=== PATIENT | male | born 1950 | race Caucasian/White ===

== ENCOUNTER 2021-07-02 06:15 | Inpatient (IN) ==
[2021-07-02] MEDS ORDERED: CeFAZolin Syr 2,000MG/20 ML 2,000 MG/20 ML SYRINGE IVPB ONE (06:25)
[2021-07-02] MEDS ORDERED: Aspirin 81 MG TAB.CHEW PO ONE (06:26)
[2021-07-02] MEDS ORDERED: Ringers Solution, Lactated 1,000 ML IVC SCH (06:30)
[2021-07-02] MEDS ORDERED: Papaverine 60 MG/2 ML VIAL IVP ONE (06:42)
[2021-07-02] MEDS ORDERED: Vancomycin 1,000 MG VIAL ONE (06:42)
[2021-07-02] MEDS: Chlorhexidine Rinse 15 ML MOUTHWASH MM SCH ×3 (06:51→21:18)
[2021-07-02] MEDS ORDERED: NiCARdipine 2.5 MG/10 ML Syringe IVPB ONE (06:59)
[2021-07-02] MEDS ORDERED: *HR* DOBUTamine HCl 250 MG/20 ML VIAL ONE (06:59)
[2021-07-02] MEDS ORDERED: *HR* Midazolam HCl 5 MG/5 ML VIAL IVP ONE (07:01)
[2021-07-02] MEDS ORDERED: *HR* FentaNYL (PF) 1,000 MCG/20 ML VIAL ONE (07:01)
[2021-07-02] MEDS ORDERED: D5% in Water 250 ML ONE (07:02)
[2021-07-02] MEDS ORDERED: *HR* Vasopressin 20 UNIT/ML VIAL ONE (07:30)
[2021-07-02] MEDS ORDERED: Albumin Human 5% 12.5 GM/250 ML IV.SOLN ONE (07:31)
[2021-07-02] MEDS ORDERED: del Nido Cardioplegia Solution PF SCH (07:45)
[2021-07-02] MEDS ORDERED: Buckersberg's Blood Cardioplegia PF SCH (07:45)
[2021-07-02] MEDS ORDERED: Heparin 15,000 UNIT in 0.9 % Sodium Chloride 500 ML IV ONE (07:45)
[2021-07-02] MEDS ORDERED: Norepinephrine 4 MG in 0.9 % Sodium Chloride 250 ML IVC PRN (07:45)
[2021-07-02] MEDS ORDERED: del Nido Cardioplegia Solution PF ONE (08:00)
[2021-07-02 09:45] LABS: ABG Base Excess -3 mEq/L (-2 to 3); ABG Chloride 106 mEq/L (98-107); ABG Glucose 137 mg/dL (60-95); ABG HCO3 23 mEq/L (21-27); ABG Ionized Calcium 1.14 mmol/L (1.15-1.35); ABG Oxygen Saturation 97 % (95-98); ABG PCO2 45 mmHg (35-45); ABG PH 7.33 pH Units (7.32-7.45); ABG PO2 97 mmHg (85-104); ABG TCO2 25 mEq/L (20-26)
[2021-07-02 10:22] LABS: ABG Base Excess -3 mEq/L (-2 to 3); ABG Chloride 105 mEq/L (98-107); ABG Glucose 224 mg/dL (60-95); ABG HCO3 23 mEq/L (21-27); ABG Oxygen Saturation 97 % (95-98); ABG PCO2 42 mmHg (35-45); ABG PH 7.34 pH Units (7.32-7.45); ABG PO2 101 mmHg (85-104); ABG TCO2 24 mEq/L (20-26)
[2021-07-02 11:09] LABS: ABG Base Excess -5 mEq/L (-2 to 3); ABG Chloride 106 mEq/L (98-107); ABG Glucose 209 mg/dL (60-95); ABG HCO3 21 mEq/L (21-27); ABG Oxygen Saturation 99 % (95-98); ABG PCO2 41 mmHg (35-45); ABG PH 7.32 pH Units (7.32-7.45); ABG PO2 136 mmHg (85-104); ABG TCO2 23 mEq/L (20-26)
[2021-07-02] MEDS ORDERED: Albumin Human 5% 50.0 GM/1,000 ML IV.SOLN ONE (11:44)
[2021-07-02 11:57] LABS: ABG Base Excess -4 mEq/L (-2 to 3); ABG Chloride 105 mEq/L (98-107); ABG Glucose 213 mg/dL (60-95); ABG HCO3 22 mEq/L (21-27); ABG Ionized Calcium 1.18 mmol/L (1.15-1.35); ABG Oxygen Saturation 99 % (95-98); ABG PCO2 43 mmHg (35-45); ABG PH 7.32 pH Units (7.32-7.45); ABG PO2 142 mmHg (85-104); ABG TCO2 23 mEq/L (20-26)
[2021-07-02] MEDS ORDERED: Insulin Regular, Human 100 UNIT/ML IV PRN (13:10)
[2021-07-02] MEDS ORDERED: Ondansetron 4 MG/2 ML VIAL IVP PRN (13:10)
[2021-07-02] MEDS ORDERED: *HR* Dextrose 50 % in Water (Syg) 50 ML SYRINGE IVP PRN (13:10)
[2021-07-02] MEDS ORDERED: Calcium Gluconate 1gm/50mL 1 GM/50 ML BAG IVPB PRN (13:10)
[2021-07-02] MEDS ORDERED: Potassium Chloride 40 MEQ/200 ML BAG IVPB PRN (13:10)
[2021-07-02] MEDS ORDERED: Sennosides 8.6 MG TABLET PO PRN (13:10)
[2021-07-02 13:14] LABS: ABG Base Excess -5 mEq/L (-2 to 3); ABG HCO3 20 mEq/L (21-27); ABG Oxygen Saturation 96 % (95-98); ABG PCO2 37 mmHg (35-45); ABG PH 7.34 pH Units (7.32-7.45); ABG PO2 84 mmHg (85-104); ABG TCO2 21 mEq/L (20-26); Blood Gas Modality AF; Blood Gas VT 600 cc
[2021-07-02] MEDS ORDERED: *HR* Rocuronium Bromide 50 MG/5 ML VIAL ONE (13:15)
[2021-07-02] MEDS ORDERED: *HR* Etomidate 20 MG/10 ML AMPUL IVP ONE (13:16)
[2021-07-02] MEDS ORDERED: Tranexamic Acid 1,000 MG/10 ML VIAL ONE (13:16)
[2021-07-02] MEDS ORDERED: Protamine Sulfate 250 MG/25 ML VIAL IVP ONE (13:16)
[2021-07-02 13:22] LABS: Basophils # 0.1 K/mcL (0.0-0.2); Basophils % 0.3 %; Eosinophils # 0.2 K/mcL (0.0-0.6); Eosinophils % 0.8 %; Hematocrit 38.1 % (37.5-50.1); Immature Granulocytes % 0.9 % (0-4); Lymphocytes # 2.1 K/mcL (0.6-4.6); Lymphocytes % 10.3 %; Mean Corpuscular HGB Conc 32.8 g/dL (31.6-35.5); Mean Corpuscular Hemoglobin 29.6 pg (28.0-33.3); Mean Corpuscular Volume 90.3 fL (83.0-100.0); Mean Platelet Volume 10.1 fL (9.4-12.4); Monocytes # 1.8 K/mcL (0.0-1.3); Monocytes % 8.9 %; Neutrophils # 15.8 K/mcL (1.6-8.9); Platelet Count 203 K/mcL (140-400); Red Blood Count 4.22 M/mcL (4.19-5.50); Red Cell Distribution Width 12.8 % (11.5-14.5); Segmented Neutrophils % 78.8 %
[2021-07-02 13:31] LABS: INR 1.3
[2021-07-02 13:33] LABS: Activated Partial Thrombo Time 46.4 Seconds (26.0-36.0); Hemoglobin 12.5 g/dL (12.9-16.9)
[2021-07-02 13:52] LABS: BUN/Creatinine Ratio 17 (6-26); Blood Urea Nitrogen 19 mg/dL (8-23); Carbon Dioxide 22 mEq/L (23-29); Chloride 107 mEq/L (98-107); Glucose 201 mg/dL (70-105); Magnesium 1.6 mg/dL (1.6-2.6); Osmolality,Calculated 294 (280-300); Potassium 3.8 mEq/L (3.5-5.1); Sodium 138 mEq/L (136-145); eGFR For African Americans > 60 (> 60); eGFR For Non-African Americans > 60 (> 60)
[2021-07-02] MEDS: Albumin Human 5% 12.5 GM/250 ML IV.SOLN IVPB PRN ×2 (13:58→21:49)
[2021-07-02] MEDS: Norepinephrine 4 MG/254 ML IV.SOLN IVC SCH (14:05)
[2021-07-02] MEDS: niCARdipine 20 MG/200 ML MLS IVC SCH ×2 (14:05→15:43)
[2021-07-02 14:09] LABS: ABG Base Excess -5 mEq/L (-2 to 3); ABG Chloride 105 mEq/L (98-107); ABG Glucose 197 mg/dL (60-95); ABG HCO3 22 mEq/L (21-27); ABG Oxygen Saturation 98 % (95-98); ABG PCO2 48 mmHg (35-45); ABG PH 7.27 pH Units (7.32-7.45); ABG PO2 114 mmHg (85-104); ABG TCO2 24 mEq/L (20-26)
[2021-07-02] MEDS: *HR* OxyCODONE/APAP 5/325 TABLET PO PRN (14:49)
[2021-07-02] MEDS: CeFAZolin 2 GM/120 ML BAG IVPB SCH (15:02)
[2021-07-02] MEDS ORDERED: niCARdipine 40 MG/200 ML MLS IVC ONE (15:04)
[2021-07-02] MEDS ORDERED: Heparin 1,000 UNITS/500 mL IV.SOLN IR ONE (15:58)
[2021-07-02] MEDS ORDERED: *HR* Heparin 10,000 UNIT/10 ML VIAL IR ONE (15:58)
[2021-07-02 16:46] LABS: Magnesium 2.3 mg/dL (1.6-2.6); Potassium 3.4 mEq/L (3.5-5.1)
[2021-07-02 18:04] LABS: ABG Base Excess -6 mEq/L (-2 to 3); ABG HCO3 20 mEq/L (21-27); ABG Oxygen Saturation 95 % (95-98); ABG PCO2 40 mmHg (35-45); ABG PO2 81 mmHg (85-104); ABG TCO2 21 mEq/L (20-26); Blood Gas Modality CPAP/PS; Blood Gas Pressure Support 5 cm H2O
[2021-07-02] MEDS ORDERED: Amiodarone Premix 150 MG/100 ML BAG IVPB ONE (18:05)
[2021-07-02] MEDS ORDERED: Amiodarone Premix 360 MG/200 ML BAG IVC ONE (18:05)
[2021-07-02] MEDS: *HR* FentaNYL (PF) 100 MCG/2 ML VIAL IVP PRN (19:21)
[2021-07-02 20:34] LABS: ABG Base Excess -4 mEq/L (-2 to 3); ABG HCO3 21 mEq/L (21-27); ABG Oxygen Saturation 95 % (95-98); ABG PCO2 37 mmHg (35-45); ABG PH 7.36 pH Units (7.32-7.45); ABG PO2 80 mmHg (85-104); ABG TCO2 22 mEq/L (20-26); Blood Gas Modality 4LPM
[2021-07-02 21:10] LABS: ABG Ionized Calcium 1.22 mmol/L (1.15-1.35)
[2021-07-02 21:26] LABS: BUN/Creatinine Ratio 17 (6-26); Blood Urea Nitrogen 20 mg/dL (8-23); Calcium 8.5 mg/dL (8.6-10.3); Carbon Dioxide 21 mEq/L (23-29); Chloride 107 mEq/L (98-107); Glucose 144 mg/dL (70-105); Magnesium 2.4 mg/dL (1.6-2.6); Osmolality,Calculated 287 (280-300); Phosphorous 1.4 mg/dL (2.7-4.5); Potassium 4.1 mEq/L (3.5-5.1); Sodium 136 mEq/L (136-145); eGFR For African Americans > 60 (> 60); eGFR For Non-African Americans 60 (> 60)
[2021-07-03] MEDS: CeFAZolin 2 GM/120 ML BAG IVPB SCH (00:15)
[2021-07-03] MEDS: Amiodarone Premix 360 MG/200 ML BAG IVC SCH ×2 (00:24→12:13)
[2021-07-03] MEDS: niCARdipine 20 MG/200 ML MLS IVC SCH ×5 (01:55→17:05)
[2021-07-03 03:59] LABS: Basophils % 0.1 %; Hematocrit 36.6 % (37.5-50.1); Immature Granulocytes % 0.5 % (0-4); Lymphocytes # 0.7 K/mcL (0.6-4.6); Lymphocytes % 4.9 %; Mean Corpuscular HGB Conc 32.8 g/dL (31.6-35.5); Mean Corpuscular Hemoglobin 29.3 pg (28.0-33.3); Mean Corpuscular Volume 89.5 fL (83.0-100.0); Mean Platelet Volume 10.2 fL (9.4-12.4); Monocytes # 1.6 K/mcL (0.0-1.3); Monocytes % 10.6 %; Neutrophils # 12.3 K/mcL (1.6-8.9); Platelet Count 239 K/mcL (140-400); Red Blood Count 4.09 M/mcL (4.19-5.50); Segmented Neutrophils % 83.9 %; White Blood Count 14.7 K/mcL (4.3-11.1)
[2021-07-03 04:06] LABS: INR 1.3; Prothrombin Time 14.1 Seconds (9.4-12.1)
[2021-07-03 04:09] LABS: Activated Partial Thrombo Time 28.3 Seconds (26.0-36.0)
[2021-07-03] MEDS: *HR* OxyCODONE/APAP 5/325 TABLET PO PRN ×2 (04:17→08:17)
[2021-07-03 04:18] LABS: BUN/Creatinine Ratio 18 (6-26); Blood Urea Nitrogen 22 mg/dL (8-23); Calcium 8.2 mg/dL (8.6-10.3); Carbon Dioxide 21 mEq/L (23-29); Chloride 108 mEq/L (98-107); Glucose 152 mg/dL (70-105); Magnesium 2.1 mg/dL (1.6-2.6); Osmolality,Calculated 290 (280-300); Potassium 4.2 mEq/L (3.5-5.1); Sodium 137 mEq/L (136-145); eGFR For African Americans > 60 (> 60); eGFR For Non-African Americans > 60 (> 60)
[2021-07-03] MEDS: *HR* FentaNYL (PF) 100 MCG/2 ML VIAL IVP PRN (06:22)
[2021-07-03] MEDS ORDERED: Aspirin Enteric Coated 81 MG Tablet PO SCH (09:00)
[2021-07-03] MEDS ORDERED: Pantoprazole 40 MG VIAL IVP SCH (09:00)
[2021-07-03] MEDS: Chlorhexidine Rinse 15 ML MOUTHWASH MM SCH (10:21)
[2021-07-03] MEDS: Norepinephrine 4 MG/254 ML IV.SOLN IVC SCH (12:25)
[2021-07-03] MEDS ORDERED: Dextrose 4 GM Chewable Tablets PO PRN ×2 (13:20)
[2021-07-03] MEDS ORDERED: Sennosides 8.6 MG TABLET PO PRN (13:20)
[2021-07-03] MEDS ORDERED: *HR* OxyCODONE/APAP 5/325 TABLET PO PRN (13:20)
[2021-07-03] MEDS ORDERED: Albumin Human 5% 12.5 GM/250 ML IV.SOLN IVPB PRN (13:20)
[2021-07-03] MEDS ORDERED: *HR* Dextrose 50 % in Water (Syg) 50 ML SYRINGE IVP PRN (13:20)
[2021-07-03] MEDS ORDERED: Amiodarone Premix 360 MG/200 ML BAG IVC SCH (13:20)
[2021-07-03] MEDS ORDERED: D5% in Water 1,000 ML IVC PRN (13:20)
[2021-07-03] MEDS ORDERED: Ondansetron 4 MG/2 ML VIAL IVP PRN (13:20)
[2021-07-03] MEDS: Insulin LISPRO 300 UNITS/3 ML VIAL SUBQ SCH ×4 (13:36→23:09)
[2021-07-03] MEDS: lisinopriL 10 MG TABLET PO SCH (18:06)
[2021-07-03] MEDS: *HR* Heparin 5,000 UNIT/ML VIAL SQ SCH (18:06)
[2021-07-03] MEDS ORDERED: Furosemide 40 MG/4 ML VIAL IVP ONE (18:19)
[2021-07-03 18:49] LABS: ABG Base Excess -8 mEq/L (-2 to 3); ABG HCO3 15 mEq/L (21-27); ABG Oxygen Saturation 88 % (95-98); ABG PCO2 25 mmHg (35-45); ABG PO2 53 mmHg (85-104); ABG TCO2 16 mEq/L (20-26)
[2021-07-03] MEDS: niCARdipine 40 MG in 0.9 % Sodium Chloride 184 ML IVC SCH (18:55)
[2021-07-03 20:40] LABS: Potassium 3.8 mEq/L (3.5-5.1)
[2021-07-03 23:27] LABS: ABG Base Excess -3 mEq/L (-2 to 3); ABG HCO3 21 mEq/L (21-27); ABG Oxygen Saturation 97 % (95-98); ABG PCO2 32 mmHg (35-45); ABG PH 7.43 pH Units (7.32-7.45); ABG PO2 84 mmHg (85-104); ABG TCO2 22 mEq/L (20-26); Blood Gas Modality NIV
[2021-07-04] MEDS: niCARdipine 20 MG/200 ML MLS IVC SCH ×2 (01:11→01:12)
[2021-07-04 02:08] LABS: Basophils % 0.1 %; Hematocrit 33.4 % (37.5-50.1); Immature Granulocytes % 0.6 % (0-4); Lymphocytes # 0.8 K/mcL (0.6-4.6); Mean Corpuscular HGB Conc 32.9 g/dL (31.6-35.5); Mean Corpuscular Hemoglobin 29.7 pg (28.0-33.3); Mean Corpuscular Volume 90.3 fL (83.0-100.0); Mean Platelet Volume 10.7 fL (9.4-12.4); Monocytes # 1.3 K/mcL (0.0-1.3); Monocytes % 8.5 %; Neutrophils # 13.3 K/mcL (1.6-8.9); Platelet Count 193 K/mcL (140-400); Red Cell Distribution Width 13.3 % (11.5-14.5); Segmented Neutrophils % 85.8 %; White Blood Count 15.5 K/mcL (4.3-11.1)
[2021-07-04 02:09] LABS: VBG Ionized Calcium 1.14 mmol/L (1.15-1.35)
[2021-07-04 02:27] LABS: Albumin 3.2 g/dL (3.5-5.7); Albumin/Globulin Ratio 1.5 (1.1-2.2); Bilirubin,Total 0.4 mg/dL (0.3-1.0); Globulin 2.1 g/dL (2.4-3.5); Magnesium 2.3 mg/dL (1.6-2.6); Phosphorous 3.1 mg/dL (2.7-4.5); Potassium 4.2 mEq/L (3.5-5.1); Total Protein 5.3 g/dL (6.4-8.9)
[2021-07-04] MEDS: niCARdipine 40 MG in 0.9 % Sodium Chloride 184 ML IVC SCH ×2 (02:54→12:17)
[2021-07-04] MEDS ORDERED: 0.9 % Sodium Chloride 500 ML IVC ONE (03:54)
[2021-07-04] MEDS ORDERED: 0.9 % Sodium Chloride 500 ML ONE (04:18)
[2021-07-04] MEDS: *HR* Heparin 5,000 UNIT/ML VIAL SQ SCH ×2 (05:44→17:09)
[2021-07-04] MEDS: Insulin LISPRO 300 UNITS/3 ML VIAL SUBQ SCH ×4 (07:50→21:37)
[2021-07-04] MEDS: lisinopriL 10 MG TABLET PO SCH (07:51)
[2021-07-04] MEDS ORDERED: Aspirin Enteric Coated 81 MG Tablet PO SCH (09:00)
[2021-07-04] MEDS ORDERED: Pantoprazole 40 MG VIAL IVP SCH (09:00)
[2021-07-04 09:21] LABS: ABG Base Excess 0 mEq/L (-2 to 3); ABG HCO3 24 mEq/L (21-27); ABG Oxygen Saturation 95 % (95-98); ABG PCO2 35 mmHg (35-45); ABG PH 7.45 pH Units (7.32-7.45); ABG PO2 69 mmHg (85-104); ABG TCO2 25 mEq/L (20-26)
[2021-07-04] MEDS ORDERED: *HR* Amiodarone 200 MG TABLET PO SCH (10:30)
[2021-07-04] MEDS ORDERED: Perflutren Lipid Microsphere 1.3 ML in 0.9 % Sodium Chloride 8.7 ML IVP PRN ×2 (11:25→13:46)
[2021-07-04] MEDS ORDERED: Dextrose 4 GM Chewable Tablets PO PRN ×2 (13:46)
[2021-07-04] MEDS ORDERED: Ondansetron 4 MG/2 ML VIAL IVP PRN (13:46)
[2021-07-04] MEDS ORDERED: Sennosides 8.6 MG TABLET PO PRN (13:46)
[2021-07-04] MEDS ORDERED: *HR* Dextrose 50 % in Water (Syg) 50 ML SYRINGE IVP PRN (13:46)
[2021-07-04] MEDS ORDERED: D5% in Water 1,000 ML IVC PRN (13:46)
[2021-07-04] MEDS ORDERED: Albumin Human 5% 12.5 GM/250 ML IV.SOLN IVPB PRN (13:46)
[2021-07-04] MEDS: *HR* OxyCODONE/APAP 5/325 TABLET PO PRN (17:09)
[2021-07-05] MEDS: *HR* Heparin 5,000 UNIT/ML VIAL SQ SCH ×2 (06:17→17:15)
[2021-07-05 08:14] LABS: Basophils % 0.1 %; Eosinophils % 0.1 %; Hematocrit 33.3 % (37.5-50.1); Hemoglobin 11.2 g/dL (12.9-16.9); Immature Granulocytes % 1.2 % (0-4); Lymphocytes # 0.8 K/mcL (0.6-4.6); Lymphocytes % 4.8 %; Mean Corpuscular HGB Conc 33.6 g/dL (31.6-35.5); Mean Corpuscular Hemoglobin 30.4 pg (28.0-33.3); Mean Corpuscular Volume 90.2 fL (83.0-100.0); Mean Platelet Volume 10.9 fL (9.4-12.4); Monocytes # 1.2 K/mcL (0.0-1.3); Monocytes % 7.8 %; Neutrophils # 13.7 K/mcL (1.6-8.9); Platelet Count 229 K/mcL (140-400); Red Blood Count 3.69 M/mcL (4.19-5.50); Red Cell Distribution Width 13.5 % (11.5-14.5); White Blood Count 15.9 K/mcL (4.3-11.1)
[2021-07-05 08:34] LABS: Calcium 8.7 mg/dL (8.6-10.3); Magnesium 2.5 mg/dL (1.6-2.6); Potassium 3.9 mEq/L (3.5-5.1)
[2021-07-05] MEDS: Pantoprazole 40 MG VIAL IVP SCH (08:36)
[2021-07-05] MEDS: *HR* OxyCODONE/APAP 5/325 TABLET PO PRN (08:37)
[2021-07-05] MEDS: *HR* Amiodarone 200 MG TABLET PO SCH (08:37)
[2021-07-05] MEDS: Insulin LISPRO 300 UNITS/3 ML VIAL SUBQ SCH ×4 (08:38→20:29)
[2021-07-05] MEDS: Aspirin Enteric Coated 81 MG Tablet PO SCH (08:38)
[2021-07-05] MEDS ORDERED: lisinopriL 10 MG TABLET PO SCH (09:00)
[2021-07-05] MEDS ORDERED: Insulin DETEMIR 100 UNIT/ML X5UNITS SUBQ ONE (14:30)
[2021-07-06 05:18] LABS: Bacteria,Urine Moderate per hpf (None-Few); Bilirubin,Urine Negative (Negative); Blood,Urine Small (Negative); Budding Yeast,Urine Few per hpf (None Seen); Clarity,Urine Clear (Clear); Color,Urine Yellow (Yellow); Glucose,Urine (UA) Normal (Normal); Ketones,Urine Trace mg/dL (Negative); Leukocyte Esterase,Urine Negative (Negative); Mucus,Urine Few per lpf (None-Few); Nitrite,Urine Negative (Negative); PH,Urine 5.5 pH Units (5.0-8.0); Protein,Urine 50 mg/dL (Neg-Trace); Specific Gravity,Urine 1.025 (1.010-1.025); Squamous Epithelial Cell,Urine Few per hpf (None-Few); Urobilinogen,Urine Normal (Normal)
[2021-07-06 05:32] LABS: Basophils % 0.2 %; Eosinophils % 0.2 %; Hematocrit 34.9 % (37.5-50.1); Hemoglobin 11.5 g/dL (12.9-16.9); Immature Granulocytes % 1.1 % (0-4); Lymphocytes # 1.3 K/mcL (0.6-4.6); Lymphocytes % 10.3 %; Mean Corpuscular Hemoglobin 29.3 pg (28.0-33.3); Mean Corpuscular Volume 88.8 fL (83.0-100.0); Mean Platelet Volume 10.8 fL (9.4-12.4); Monocytes # 1.3 K/mcL (0.0-1.3); Monocytes % 10.3 %; Neutrophils # 9.6 K/mcL (1.6-8.9); Platelet Count 303 K/mcL (140-400); Red Blood Count 3.93 M/mcL (4.19-5.50); Red Cell Distribution Width 13.2 % (11.5-14.5); Segmented Neutrophils % 77.9 %; White Blood Count 12.3 K/mcL (4.3-11.1)
[2021-07-06 05:48] LABS: Calcium 8.7 mg/dL (8.6-10.3); Potassium 3.9 mEq/L (3.5-5.1)
[2021-07-06] MEDS: *HR* Heparin 5,000 UNIT/ML VIAL SQ SCH ×2 (05:49→16:59)
[2021-07-06 06:27] LABS: Thyroid Stimulating Hormone 3.07 mcIU/mL (0.340-5.600)
[2021-07-06] MEDS: Pantoprazole 40 MG VIAL IVP SCH (08:49)
[2021-07-06] MEDS: Aspirin Enteric Coated 81 MG Tablet PO SCH (08:50)
[2021-07-06] MEDS: Insulin LISPRO 300 UNITS/3 ML VIAL SUBQ SCH ×4 (08:50→21:22)
[2021-07-06] MEDS: *HR* Amiodarone 200 MG TABLET PO SCH (08:50)
[2021-07-06] MEDS ORDERED: Tolvaptan 15 MG TABLET PO ONE (11:26)
[2021-07-06] MEDS ORDERED: Amiodarone Premix 150 MG/100 ML BAG IVPB ONE (16:15)
[2021-07-06] MEDS ORDERED: Amiodarone Premix 360 MG/200 ML BAG IVC ONE (16:35)
[2021-07-06] MEDS ORDERED: *HR* Amiodarone 200 MG TABLET PO SCH (21:00)
[2021-07-06] MEDS: Amiodarone Premix 360 MG/200 ML BAG IVC SCH (23:19)
[2021-07-07] MEDS: *HR* Heparin 5,000 UNIT/ML VIAL SQ SCH (06:38)
[2021-07-07 07:07] LABS: Basophils % 0.3 %; Eosinophils # 0.1 K/mcL (0.0-0.6); Eosinophils % 1.2 %; Hematocrit 32.5 % (37.5-50.1); Hemoglobin 11.3 g/dL (12.9-16.9); Immature Granulocytes % 1.2 % (0-4); Lymphocytes % 12.8 %; Mean Corpuscular HGB Conc 34.8 g/dL (31.6-35.5); Mean Corpuscular Hemoglobin 30.4 pg (28.0-33.3); Mean Corpuscular Volume 87.4 fL (83.0-100.0); Mean Platelet Volume 10.3 fL (9.4-12.4); Monocytes # 1.2 K/mcL (0.0-1.3); Neutrophils # 5.4 K/mcL (1.6-8.9); Platelet Count 316 K/mcL (140-400); Red Blood Count 3.72 M/mcL (4.19-5.50); Red Cell Distribution Width 13.2 % (11.5-14.5); Segmented Neutrophils % 69.5 %; White Blood Count 7.8 K/mcL (4.3-11.1)
[2021-07-07] MEDS: Aspirin Enteric Coated 81 MG Tablet PO SCH (07:15)
[2021-07-07 07:27] LABS: Calcium 8.4 mg/dL (8.6-10.3); Potassium 4.1 mEq/L (3.5-5.1)
[2021-07-07 07:30] LABS: Albumin 3.1 g/dL (3.5-5.7); Albumin/Globulin Ratio 1.2 (1.1-2.2); Bilirubin,Direct 0.1 mg/dL (0.0-0.2); Bilirubin,Indirect 0.4 mg/dL (0.0-1.0); Bilirubin,Total 0.5 mg/dL (0.3-1.0); Globulin 2.6 g/dL (2.4-3.5); Total Protein 5.7 g/dL (6.4-8.9)
[2021-07-07] MEDS: Insulin LISPRO 300 UNITS/3 ML VIAL SUBQ SCH ×4 (08:46→20:46)
[2021-07-07] MEDS: Amiodarone Premix 360 MG/200 ML BAG IVC SCH ×2 (10:41→22:54)
[2021-07-07] MEDS ORDERED: *HR* Heparin 5,000 UNIT/ML VIAL IVP ONE (12:54)
[2021-07-07] MEDS ORDERED: *HR* Heparin 5,000 UNIT/ML VIAL IVP PRN ×2 (12:54)
[2021-07-07 14:13] LABS: Heparin anti-factor XA UFH < 0.04 IU/mL (0.30-0.70)
[2021-07-07 14:14] LABS: INR 1.1; Prothrombin Time 12.4 Seconds (9.4-12.1)
[2021-07-07] MEDS: Heparin 25,000UNIT/250ML 1/2NS 25,000 UNIT/250 ML IV.SOLN IVC SCH (14:33)
[2021-07-07] MEDS: carvediloL 6.25 MG TABLET PO SCH (17:26)
[2021-07-07] MEDS ORDERED: *HR* Warfarin 2.5 MG TABLET PO ONE (18:00)
[2021-07-07] MEDS ORDERED: Warfarin perPT PO PRN (18:00)
[2021-07-07] MEDS ORDERED: Insulin DETEMIR 100 UNIT/ML X5UNITS SUBQ SCH (21:00)
[2021-07-08 06:05] LABS: Basophils % 0.5 %; Eosinophils # 0.3 K/mcL (0.0-0.6); Eosinophils % 3.5 %; Hematocrit 31.2 % (37.5-50.1); Hemoglobin 10.6 g/dL (12.9-16.9); Immature Granulocytes % 1.6 % (0-4); Lymphocytes # 1.2 K/mcL (0.6-4.6); Lymphocytes % 15.8 %; Mean Corpuscular Volume 88.4 fL (83.0-100.0); Mean Platelet Volume 10.2 fL (9.4-12.4); Monocytes # 1.1 K/mcL (0.0-1.3); Monocytes % 14.7 %; Neutrophils # 4.8 K/mcL (1.6-8.9); Platelet Count 335 K/mcL (140-400); Red Blood Count 3.53 M/mcL (4.19-5.50); Red Cell Distribution Width 13.5 % (11.5-14.5); Segmented Neutrophils % 63.9 %; White Blood Count 7.5 K/mcL (4.3-11.1)
[2021-07-08 06:13] LABS: INR 1.3; Prothrombin Time 14.8 Seconds (9.4-12.1)
[2021-07-08 06:22] LABS: Calcium 8.1 mg/dL (8.6-10.3)
[2021-07-08] MEDS: carvediloL 6.25 MG TABLET PO SCH ×2 (08:25→17:51)
[2021-07-08] MEDS: Aspirin Enteric Coated 81 MG Tablet PO SCH (08:25)
[2021-07-08] MEDS: Insulin LISPRO 300 UNITS/3 ML VIAL SUBQ SCH ×4 (08:27→20:42)
[2021-07-08] MEDS: Heparin 25,000UNIT/250ML 1/2NS 25,000 UNIT/250 ML IV.SOLN IVC SCH (08:28)
[2021-07-08] MEDS: Amiodarone Premix 360 MG/200 ML BAG IVC SCH ×2 (11:19→21:09)
[2021-07-08] MEDS ORDERED: Lidocaine Viscous Oral Soln 15 ML SOLUTION MM PRN (12:43)
[2021-07-08] MEDS ORDERED: 0.9 % Sodium Chloride 500 ML IVC ONE (12:44)
[2021-07-08] MEDS: *HR* FentaNYL (PF) 100 MCG/2 ML VIAL IVP PRN ×4 (13:25→13:44)
[2021-07-08] MEDS: *HR* Midazolam HCl 5 MG/5 ML VIAL IVP PRN ×4 (13:25→13:44)
[2021-07-08] MEDS ORDERED: *HR* Warfarin 2.5 MG TABLET PO ONE (18:00)
[2021-07-08] MEDS ORDERED: Insulin DETEMIR 100 UNIT/ML X5UNITS SUBQ SCH (21:00)
[2021-07-09 04:43] LABS: Hematocrit 31.1 % (37.5-50.1); Hemoglobin 10.3 g/dL (12.9-16.9); Mean Corpuscular HGB Conc 33.1 g/dL (31.6-35.5); Mean Corpuscular Hemoglobin 29.3 pg (28.0-33.3); Mean Corpuscular Volume 88.6 fL (83.0-100.0); Mean Platelet Volume 9.7 fL (9.4-12.4); Platelet Count 332 K/mcL (140-400); Red Blood Count 3.51 M/mcL (4.19-5.50); Red Cell Distribution Width 13.5 % (11.5-14.5); White Blood Count 8.3 K/mcL (4.3-11.1)
[2021-07-09 04:53] LABS: INR 1.3; Prothrombin Time 14.7 Seconds (9.4-12.1)
[2021-07-09 05:01] LABS: BUN/Creatinine Ratio 21 (6-26); Blood Urea Nitrogen 27 mg/dL (8-23); Calcium 8.1 mg/dL (8.6-10.3); Carbon Dioxide 25 mEq/L (23-29); Chloride 105 mEq/L (98-107); Glucose 163 mg/dL (70-105); Osmolality,Calculated 291 (280-300); Sodium 136 mEq/L (136-145); eGFR For African Americans > 60 (> 60); eGFR For Non-African Americans 54 (> 60)
[2021-07-09 07:31] VITALS: TEMP 99.4
[2021-07-09 09:18] LABS: Creatine Kinase 192 Units/L (30-223)
[2021-07-09] MEDS: Insulin LISPRO 300 UNITS/3 ML VIAL SUBQ SCH (09:28)
[2021-07-09] MEDS: Aspirin Enteric Coated 81 MG Tablet PO SCH (09:58)
[2021-07-09] MEDS: carvediloL 6.25 MG TABLET PO SCH (10:09)
[2021-07-09 12:14] VITALS: PULSE 76; O2SAT 98
[2021-07-09 12:16] VITALS: BP 131/62
[2021-07-09] MEDS: Heparin 25,000UNIT/250ML 1/2NS 25,000 UNIT/250 ML IV.SOLN IVC SCH (14:13)
[2021-07-09] MEDS ORDERED: Furosemide 20 MG TABLET PO SCH (17:00)
[2021-07-09] MEDS ORDERED: *HR* Warfarin 5 MG TABLET PO ONE (18:00)
[2021-07-09] MEDS ORDERED: *HR* Amiodarone 200 MG TABLET PO SCH (21:00)
== END 2021-07-09 17:13 | disposition home health service (06) | DRG 235 ==
LOC: SAMDAY 06:15 → ICNU 11:37 → SUATTDRO 11:37 → 2NNU 07-04 16:45
PROVIDERS: ADMIT Thoracic Surgery (Cardiothoracic Vascular Surgery); ATTEND Internal Medicine

== ENCOUNTER 2021-12-17 17:17 | Inpatient (IN) ==
[2021-12-17 18:49] LABS: Immature Granulocytes % 0.6 % (0-4); Lymphocytes % 26.4 %
[2021-12-17 18:51] LABS: Basophils # 0.1 K/mcL (0.0-0.2); Basophils % 0.7 %; Eosinophils # 0.2 K/mcL (0.0-0.6); Eosinophils % 3.1 %; Hematocrit 19.7 % (37.5-50.1); Lymphocytes # 1.8 K/mcL (0.6-4.6); Mean Corpuscular HGB Conc 28.9 g/dL (31.6-35.5); Mean Corpuscular Hemoglobin 22.3 pg (28.0-33.3); Monocytes # 0.8 K/mcL (0.0-1.3); Monocytes % 12.2 %; Neutrophils # 3.8 K/mcL (1.6-8.9); Nucleated Red Blood Cells 0.3 /100 WBC (0); Platelet Count 383 K/mcL (140-400); Red Blood Count 2.56 M/mcL (4.19-5.50); White Blood Count 6.7 K/mcL (4.3-11.1)
[2021-12-17 19:14] LABS: Hemoglobin 5.7 g/dL (12.9-16.9)
[2021-12-17 19:36] LABS: Hypochromasia Present (Not Present); Microcytosis Present (Not Present); Polychromasia 1+ (Not Present)
[2021-12-17 20:34] LABS: Activated Partial Thrombo Time 41.1 Seconds (26.0-36.0)
[2021-12-17 20:39] LABS: Prothrombin Time 54.7 Seconds (9.4-12.1)
[2021-12-17] MEDS ORDERED: 0.9 % Sodium Chloride 500 ML ONE (21:09)
[2021-12-17] MEDS ORDERED: 0.9 % Sodium Chloride 500 ML IV ONE (21:15)
[2021-12-17 22:25] LABS: Calcium 8.5 mg/dL (8.6-10.3); Potassium 4.3 mEq/L (3.5-5.1); Troponin I 0.06 ng/mL (< 0.04)
[2021-12-17] MEDS ORDERED: Naloxone 0.4 MG/ML INJ IVP PRN (23:04)
[2021-12-17] MEDS ORDERED: Ondansetron 4 MG/2 ML VIAL IVP PRN (23:04)
[2021-12-17] MEDS ORDERED: Melatonin 3 MG TABLET PO PRN (23:04)
[2021-12-17] MEDS ORDERED: 0.9 % Sodium Chloride 1,000 ML IVC SCH (23:15)
[2021-12-18] MEDS: Pantoprazole 40 MG VIAL IVP SCH ×3 (00:11→17:02)
[2021-12-18] MEDS ORDERED: D5% in Water 1,000 ML IVC PRN (00:34)
[2021-12-18] MEDS ORDERED: *HR* Dextrose 50 % in Water (Syg) 50 ML SYRINGE IVP PRN (00:34)
[2021-12-18] MEDS ORDERED: Dextrose Gel 15 GM/37.5 ML TUBE PO PRN ×2 (00:34)
[2021-12-18] MEDS ORDERED: 0.9 % Sodium Chloride 250 ML ONE (02:12)
[2021-12-18 02:59] LABS: Hematocrit 20.7 % (37.5-50.1); Hemoglobin 6.2 g/dL (12.9-16.9); Mean Corpuscular Hemoglobin 23.6 pg (28.0-33.3); Mean Corpuscular Volume 78.7 fL (83.0-100.0); Mean Platelet Volume 10.1 fL (9.4-12.4); Platelet Count 336 K/mcL (140-400); Red Blood Count 2.63 M/mcL (4.19-5.50); Red Cell Distribution Width 15.9 % (11.5-14.5); White Blood Count 6.2 K/mcL (4.3-11.1)
[2021-12-18 03:17] LABS: Calcium 8.5 mg/dL (8.6-10.3); Potassium 4.3 mEq/L (3.5-5.1)
[2021-12-18 03:22] LABS: % Iron Saturation 5 % (20-55); Iron 24 mcg/dL (65-175); Transferrin 316 mg/dL (203-362)
[2021-12-18 03:27] LABS: INR 3.5; Prothrombin Time 38.7 Seconds (9.4-12.1)
[2021-12-18 03:30] LABS: Activated Partial Thrombo Time 37.4 Seconds (26.0-36.0); Thyroid Stimulating Hormone 2.603 mcIU/mL (0.340-5.600)
[2021-12-18 03:38] LABS: Folate 7.2 ng/mL (3.0-16.0)
[2021-12-18 03:49] LABS: Ferritin < 8 ng/mL (20-250)
[2021-12-18] MEDS: Insulin LISPRO 300 UNITS/3 ML VIAL SUBQ SCH ×4 (06:12→23:53)
[2021-12-18 06:43] LABS: Hematocrit 23.5 % (37.5-50.1); Hemoglobin 7.1 g/dL (12.9-16.9)
[2021-12-18] MEDS ORDERED: Iron Sucrose Complex 400 MG in 0.9 % Sodium Chloride 250 ML IVPB ONE (12:15)
[2021-12-18] MEDS: Cyanocobalamin (B-12) 1,000 MCG/ML VIAL SQ SCH (14:12)
[2021-12-18] MEDS: *HR* Amiodarone 200 MG TABLET PO SCH (14:12)
[2021-12-18 15:02] LABS: Bilirubin,Urine Negative (Negative); Blood,Urine Negative (Negative); Clarity,Urine Clear (Clear); Color,Urine Light-Yellow (Yellow); Glucose,Urine (UA) 300 mg/dL (Normal); Ketones,Urine Negative (Negative); Leukocyte Esterase,Urine Negative (Negative); Mucus,Urine Few per lpf (None-Few); Nitrite,Urine Negative (Negative); Protein,Urine Negative (Neg-Trace); RBC,Urine 0-3 per hpf (0-3); Specific Gravity,Urine 1.015 (1.010-1.025); Urobilinogen,Urine Normal (Normal)
[2021-12-18] MEDS ORDERED: SODIUM CHLORIDE/NAHCO3/KCL/PEG 4,000 ML SOLN.RECON PO ONE (17:00)
[2021-12-18] MEDS: carvediloL 6.25 MG TABLET PO SCH (17:02)
[2021-12-19 03:29] LABS: Basophils % 0.5 %; Eosinophils # 0.3 K/mcL (0.0-0.6); Eosinophils % 3.4 %; Hematocrit 23.4 % (37.5-50.1); Hemoglobin 7.2 g/dL (12.9-16.9); Immature Granulocytes % 0.5 % (0-4); Lymphocytes # 1.2 K/mcL (0.6-4.6); Lymphocytes % 16.9 %; Mean Corpuscular HGB Conc 30.8 g/dL (31.6-35.5); Mean Corpuscular Hemoglobin 24.3 pg (28.0-33.3); Mean Corpuscular Volume 79.1 fL (83.0-100.0); Mean Platelet Volume 9.6 fL (9.4-12.4); Monocytes # 0.9 K/mcL (0.0-1.3); Neutrophils # 4.9 K/mcL (1.6-8.9); Platelet Count 330 K/mcL (140-400); Red Blood Count 2.96 M/mcL (4.19-5.50); Segmented Neutrophils % 66.7 %; White Blood Count 7.4 K/mcL (4.3-11.1)
[2021-12-19 03:37] LABS: Calcium 8.1 mg/dL (8.6-10.3); Magnesium 1.6 mg/dL (1.6-2.6); Phosphorous 3.6 mg/dL (2.7-4.5); Potassium 3.9 mEq/L (3.5-5.1)
[2021-12-19 03:47] LABS: INR 1.8
[2021-12-19] MEDS: Pantoprazole 40 MG VIAL IVP SCH (04:55)
[2021-12-19] MEDS: Insulin LISPRO 300 UNITS/3 ML VIAL SUBQ SCH (05:35)
[2021-12-19] MEDS: carvediloL 6.25 MG TABLET PO SCH (08:31)
[2021-12-19] MEDS: *HR* Amiodarone 200 MG TABLET PO SCH (08:31)
[2021-12-19] MEDS ORDERED: Simethicone 40 MG/0.6 ML MLS IR ONE (08:55)
[2021-12-19] MEDS ORDERED: Ringers Solution, Lactated 1,000 ML IVC SCH (09:00)
[2021-12-19] MEDS ORDERED: Lidocaine -MPF 2% 5 ML VIAL ONE (09:50)
[2021-12-19 11:04] VITALS: BP 121/61; PULSE 57; TEMP 97.6; O2SAT 95
[2021-12-19] MEDS: Cyanocobalamin (B-12) 1,000 MCG/ML VIAL SQ SCH (12:05)
[2021-12-19] MEDS ORDERED: Insulin LISPRO 300 UNITS/3 ML VIAL SUBQ SCH ×2 (16:30→21:00)
== END 2021-12-19 14:57 | disposition home or self-care (01) | DRG 811 ==
LOC: EMEROOARM 17:17 → 3NENU 17:17 → SUATTDRO 23:04
PROVIDERS: ADMIT Internal Medicine; ATTEND Internal Medicine
PROC: ENDOEBX (2021-12-19 10:45)